=== PATIENT | male | born 1955 | race Caucasian/White ===

== ENCOUNTER 2023-03-12 17:59 | Inpatient (IN) | payer MEDICARE, OTHER ==
[2023-03-12 19:01] LABS: #Monocytes 0.7 10x3/uL (0.0-1.1); #Neutrophils 7.3 10x3/uL (1.5-8.4); %Basophils 0.2 % (0.0-2.0); %Eosinophils 0.2 % (0.0-6.0); %Lymphocytes 17.9 % (18.0-47.0); %Neutrophils 74.3 % (40.0-75.0); Hematocrit 39.7 % (38.8-50.0); Hemoglobin 14.3 g/dL (13.5-17.5); Mean Corpuscular Volume 94.3 fl (81.2-95.1); Mean Platelet Volume 9.6 fl (7.4-10.4); Platelet Count 230 10x3/uL (150-450); RBC Distribution Width 14.8 % (11.5-14.5); Red Blood Cell (RBC) Count 4.21 10x6/uL (4.32-5.72); White Blood Cell (WBC) Count 9.8 10x3/uL (3.5-10.5)
[2023-03-12 19:29] LABS: SARS-CoV-2 NAA Rapid Test Not Detected (NotDetected)
[2023-03-12 19:36] LABS: ALT (SGPT) 106 U/L (8-55); AST (SGOT) 66 U/L (5-34); Albumin 3.7 g/dL (3.4-4.8); Alkaline Phosphatase 81 U/L (40-110); Anion Gap 22 mmol/L (10-20); BUN (Urea Nitrogen) 50 mg/dL (8.4-25.7); Bilirubin, Total 1.3 mg/dL (0.2-1.2); Calc. Creatinine Clearance 0 mL/min (70-130); Calcium 8.9 mg/dL (7.8-10.44); Carbon Dioxide 19 mmol/L (23-31); Chloride 88 mmol/L (98-107); Estimated GFR 40; Globulin 3.8 g/dL (2.4-3.5); Glucose 109 mg/dL (80-115); Lipase 78 U/L (8-78); Potassium 3.4 mmol/L (3.5-5.1); Protein, Total 7.5 g/dL (5.8-8.1); Sodium 126 mmol/L (136-145)
[2023-03-12 19:47] LABS: Troponin I 0.031 ng/mL (< 0.028)
[2023-03-12] MEDS ORDERED: DOBUTamine 500 mg/250 ml 250 ML ONE (20:06)
[2023-03-12] MEDS ORDERED: Aspirin Chewable 81 MG TAB ONE (20:10)
[2023-03-12] MEDS ORDERED: Senokot S 8.6-50 MG TAB PO PRN (20:15)
[2023-03-12] MEDS ORDERED: Calcium Carbonate 500 MG ChewTAB PO PRN (20:15)
[2023-03-12] MEDS ORDERED: Zolpidem Tartrate 5 MG TAB PO PRN (20:15)
[2023-03-12] MEDS ORDERED: Ondansetron PF 4 MG/2 ML Vial IVP PRN (20:15)
[2023-03-12] MEDS ORDERED: Guaifenesin DM 100-10/5 ML UDCUP PO PRN (20:15)
[2023-03-12] MEDS ORDERED: Acetaminophen 325 MG TAB PO PRN (20:15)
[2023-03-12 22:22] LABS: Troponin I 0.025 ng/mL (< 0.028)
[2023-03-12] MEDS ORDERED: Midodrine HCl 2.5 MG TAB PO SCH (22:30)
[2023-03-12] MEDS ORDERED: Apixaban 5 MG TAB PO SCH (22:30)
[2023-03-12] MEDS ORDERED: Potassium Chloride 20 MEQ TAB PO SCH (22:30)
[2023-03-12] MEDS: Albumin 25% 25 GM/100 ML BOT IVPB SCH (22:57)
[2023-03-12 23:38] LABS: Bilirubin Neg (Negative); Blood, Urine 250 (Negative); Clarity Clear (Clear); Glucose, Urine (Dipstick) Normal (Negative); Ketone, Urine Negative (Negative); Leukocyte Negative (Negative); Nitrite Negative (Negative); Protein, Urine (Dipstick) Negative (Neg-Trace); Specific Gravity, Urine 1.005 (1.005-1.030); Urobilinogen Normal mg/dL (Less than 2); pH, Urine 6.5 (5.0-9.0)
[2023-03-13 00:16] LABS: RBC/HPF 21-50 HPF (0-3)
[2023-03-13 00:17] LABS: Bacteria/HPF None Seen HPF (None Seen); Sperm/HPF 1+ HPF (None Seen); Squamous Epithelial None Seen HPF (0-3); WBC/HPF 0-3 HPF (0-3)
[2023-03-13] MEDS ORDERED: Sodium Chloride 0.9% 250 ML IV SCH (01:30)
[2023-03-13] MEDS: DOBUTamine 500 mg/250 ml 250 ML IVPB SCH ×3 (02:53→17:05)
[2023-03-13] MEDS: Albumin 25% 25 GM/100 ML BOT IVPB SCH ×2 (03:44→09:01)
[2023-03-13 04:09] LABS: #Monocytes 0.5 10x3/uL (0.0-1.1); #Neutrophils 5.7 10x3/uL (1.5-8.4); %Basophils 0.3 % (0.0-2.0); %Eosinophils 0.3 % (0.0-6.0); %Lymphocytes 21.6 % (18.0-47.0); %Monocytes 6.8 % (0.0-10.0); %Neutrophils 70.6 % (40.0-75.0); Hematocrit 33.8 % (38.8-50.0); Hemoglobin 11.7 g/dL (13.5-17.5); Mean Corpuscular HGB CONC 34.6 g/dL (32.0-36.0); Mean Corpuscular Volume 92.3 fl (81.2-95.1); Mean Platelet Volume 9.4 fl (7.4-10.4); Platelet Count 174 10x3/uL (150-450); Red Blood Cell (RBC) Count 3.66 10x6/uL (4.32-5.72)
[2023-03-13 04:18] LABS: Anion Gap 19 mmol/L (10-20); BUN (Urea Nitrogen) 45 mg/dL (8.4-25.7); Calc. Creatinine Clearance 41 mL/min (70-130); Calcium 8.4 mg/dL (7.8-10.44); Carbon Dioxide 22 mmol/L (23-31); Chloride 90 mmol/L (98-107); Estimated GFR 50; Glucose 89 mg/dL (80-115); Magnesium 2.2 mg/dL (1.6-2.6); Potassium 2.9 mmol/L (3.5-5.1); Sodium 128 mmol/L (136-145)
[2023-03-13 04:19] LABS: ALT (SGPT) 92 U/L (8-55); AST (SGOT) 57 U/L (5-34); Albumin 3.7 g/dL (3.4-4.8); Alkaline Phosphatase 68 U/L (40-110); Bilirubin, Direct 0.5 mg/dL (0.1-0.3); Bilirubin, Total 1.2 mg/dL (0.2-1.2); Protein, Total 6.6 g/dL (5.8-8.1)
[2023-03-13] MEDS ORDERED: Midodrine HCl 2.5 MG TAB PO SCH (06:00)
[2023-03-13] MEDS ORDERED: Potassium Chloride 20 MEQ TAB PO SCH ×2 (06:00→08:00)
[2023-03-13] MEDS: Magnesium Oxide 400 MG TAB PO SCH (08:05)
[2023-03-13] MEDS: Apixaban 5 MG TAB PO SCH ×2 (08:05→20:01)
[2023-03-13] MEDS: Aspirin 81 mg Enteric Coated Tablet PO SCH (08:05)
[2023-03-13] MEDS: Amiodarone 200 MG TAB PO SCH (08:05)
[2023-03-13 11:29] VITALS: BMI 21.2
[2023-03-13] MEDS ORDERED: NOREPINEPHRINE 8 MG/250 ML-D5W 250 ML IVPB SCH (11:45)
[2023-03-14 03:45] LABS: Anion Gap 19 mmol/L (10-20); BUN (Urea Nitrogen) 33 mg/dL (8.4-25.7); Calc. Creatinine Clearance 56 mL/min (70-130); Calcium 8.6 mg/dL (7.8-10.44); Carbon Dioxide 20 mmol/L (23-31); Chloride 88 mmol/L (98-107); Estimated GFR 68; Glucose 101 mg/dL (80-115); Potassium 3.7 mmol/L (3.5-5.1); Sodium 123 mmol/L (136-145)
[2023-03-14 03:52] LABS: Troponin I 0.014 ng/mL (< 0.028)
[2023-03-14] MEDS: Aspirin 81 mg Enteric Coated Tablet PO SCH (08:13)
[2023-03-14] MEDS: Apixaban 5 MG TAB PO SCH ×2 (08:13→20:35)
[2023-03-14] MEDS: Magnesium Oxide 400 MG TAB PO SCH (08:13)
[2023-03-14] MEDS: Amiodarone 200 MG TAB PO SCH (08:13)
[2023-03-14] MEDS: Albumin 25% 25 GM/100 ML BOT IVPB SCH (09:22)
[2023-03-14] MEDS ORDERED: Empagliflozin 10 MG TAB PO SCH (12:15)
[2023-03-14 16:45] LABS: Anion Gap 23 mmol/L (10-20); BUN (Urea Nitrogen) 38 mg/dL (8.4-25.7); Calc. Creatinine Clearance 42 mL/min (70-130); Calcium 9.1 mg/dL (7.8-10.44); Carbon Dioxide 19 mmol/L (23-31); Chloride 88 mmol/L (98-107); Estimated GFR 49; Glucose 111 mg/dL (80-115); Potassium 4.5 mmol/L (3.5-5.1); Sodium 125 mmol/L (136-145)
[2023-03-15 06:47] LABS: #Monocytes 0.5 10x3/uL (0.0-1.1); #Neutrophils 7.1 10x3/uL (1.5-8.4); %Basophils 0.1 % (0.0-2.0); %Eosinophils 0.1 % (0.0-6.0); %Lymphocytes 13.5 % (18.0-47.0); %Monocytes 6.1 % (0.0-10.0); %Neutrophils 79.8 % (40.0-75.0); Hematocrit 38.5 % (38.8-50.0); Hemoglobin 13.4 g/dL (13.5-17.5); Mean Corpuscular HGB CONC 34.8 g/dL (32.0-36.0); Mean Corpuscular Hemoglobin 32.8 pg (27.0-33.0); Mean Corpuscular Volume 94.1 fl (81.2-95.1); Mean Platelet Volume 9.5 fl (7.4-10.4); Platelet Count 194 10x3/uL (150-450); RBC Distribution Width 15.5 % (11.5-14.5); Red Blood Cell (RBC) Count 4.09 10x6/uL (4.32-5.72); White Blood Cell (WBC) Count 8.9 10x3/uL (3.5-10.5)
[2023-03-15 07:15] LABS: ALT (SGPT) 533 U/L (8-55); AST (SGOT) 549 U/L (5-34); Albumin 4.5 g/dL (3.4-4.8); Alkaline Phosphatase 95 U/L (40-110); Anion Gap 21 mmol/L (10-20); BUN (Urea Nitrogen) 48 mg/dL (8.4-25.7); Calc. Creatinine Clearance 29 mL/min (70-130); Calcium 9.4 mg/dL (7.8-10.44); Carbon Dioxide 21 mmol/L (23-31); Chloride 85 mmol/L (98-107); Estimated GFR 33; Globulin 2.9 g/dL (2.4-3.5); Glucose 101 mg/dL (80-115); Potassium 4.9 mmol/L (3.5-5.1); Protein, Total 7.4 g/dL (5.8-8.1); Sodium 122 mmol/L (136-145)
[2023-03-15] MEDS: Magnesium Oxide 400 MG TAB PO SCH (08:54)
[2023-03-15] MEDS: Amiodarone 200 MG TAB PO SCH (08:54)
[2023-03-15] MEDS: Apixaban 5 MG TAB PO SCH (08:54)
[2023-03-15] MEDS: Aspirin 81 mg Enteric Coated Tablet PO SCH (08:54)
[2023-03-15 14:23] VITALS: TEMP 96.8
[2023-03-15 16:34] VITALS: BP 88/67
== END 2023-03-15 18:29 | disposition short-term general hospital (02) | DRG 291 ==
LOC: CSHERS 17:59 → CSHICU 20:03
PROVIDERS: ADMIT Student in an Organized Health Care Education/Training Program; ATTEND Internal Medicine
PROC: 30233J1 Transfusion of Nonautologous Serum Albumin into Peripheral Vein, Percutaneous Approach (ICD-10-PCS; principal; 2023-03-12)
DX: I13.0 Hypertensive heart and chronic kidney disease with heart failure and stage 1 through stage 4 chronic kidney disease, or unspecified chronic kidney disease (principal); I50.43 Acute on chronic combined systolic (congestive) and diastolic (congestive) heart failure; J96.01 Acute respiratory failure with hypoxia; R57.0 Cardiogenic shock; I47.19 Other supraventricular tachycardia; N17.9 Acute kidney failure, unspecified; E87.1 Hypo-osmolality and hyponatremia; E87.20 Acidosis, unspecified; I42.8 Other cardiomyopathies; I48.0 Paroxysmal atrial fibrillation; E87.6 Hypokalemia; F17.210 Nicotine dependence, cigarettes, uncomplicated; I08.1 Rheumatic disorders of both mitral and tricuspid valves; N18.2 Chronic kidney disease, stage 2 (mild); Z95.810 Presence of automatic (implantable) cardiac defibrillator; Z79.01 Long term (current) use of anticoagulants; Z79.82 Long term (current) use of aspirin; Z79.899 Other long term (current) drug therapy; Z86.711 Personal history of pulmonary embolism; Z86.718 Personal history of other venous thrombosis and embolism; Z11.52 Encounter for screening for COVID-19
CPT/HCPCS: 36415; 71045; 76770; 80048; 80053; 80076; 81001; 83690; 83735; 83880; 83930; 83935; 84443; 84484; 85025; 85379; 93005; 96374; J1250; J2405; J7030; P9047